=== PATIENT | female | born 1995 | race Caucasian/White ===

== ENCOUNTER → 2021-04-17 07:32 | Outpatient (CLI) | payer OTHER, SELFPAY ==
--- NOTE | ~2021-04-17 | US_ITS ---
EXAMINATION: US OB >= 14 weeks Fetus DATE: 04/17/2021 08:05 INDICATION: survey TECHNIQUE: Multiple obstetric sonographic images performed. FINDINGS: No prior studies for comparison. There is a single living fetus in vertex presentation. The placenta is anterior without placenta pre via measuring 2.5 cm to the cervix. Amniotic fluid volume is subjectively normal. cardiac activity and movement is noted with a heart rate of 142 beats per minute. The following anatomy was identified as normal: 4 chamber heart 3 vessel cord cord insertion kidneys urinary bladder stomach spine diaphragm ventricles cisterna magna cerebellum The following biometric data were obtained: BPD: 46mm corresponds to gestational age 20 weeks 0 days. Head circumference: 169 mm corresponds to gestational age 19 weeks 4 days. Abdominal circumference: 147 mm corresponds to gestational age 20 weeks 0 days. Femur length: 29 mm corresponds to gestational age 18 weeks 6 days. Head circumference to abdominal circumference ratio: 1.15 (normal range for expected gestational age is 1.08-1.26). Estimated weight: 298 grams +/- 45 grams using Hadlock method. IMPRESSION: 1: Single living intrauterine with an estimated gestational age of 19weeks 4days by current ultrasound measurements, with an EDC of 09/07/2021 in vertex presentation. 2. Normal survey. Reviewed, dictated and finalized at location A. IMPRESSION: 1: Single living intrauterine with an estimated gestational age of 19 weeks 4days by current ultrasound measurements, with an EDC of 09/07/2021 in ve rtex presentation. 2. Normal survey.
== END ==
PROVIDERS: Visit Provider Obstetrics & Gynecology Gynecologic Oncology
DX: Z36.9 Encounter for antenatal screening, unspecified (principal); Z3A.19 19 weeks gestation of pregnancy
CPT/HCPCS: 76805

== ENCOUNTER 2024-08-23 08:06 | Outpatient (CLI) | payer BC, SELFPAY ==
--- NOTE | ~2024-08-23 | US_ITS ---
EXAMINATION: US OB /maternal detail DATE: 08/23/2024 08:52 INDICATION: anatomic survey. TECHNIQUE: Real-time ultrasound of the pelvis was performed. COMPARISON: None. FINDINGS: There is a single living fetus in transverse lie. The placenta is anterior, 2.5 cm from the cervix. The cervical length is 4.7 cm on transabdominal images, which is normal. heart rate is 136 beat s per minute (bpm). The amniotic fluid is subjectively normal. The following biometric data were obtained: Biparietal diameter (BPD): 4.8 cm; head circumference (HC): 18.1 cm; abdominal circumference (AC): 16 .2 cm; femur length (FL): 3.2 cm. These measurements are concordant. Estimated weight is 371 g +/- 56 g, which correlates with the 89th percentile when 01/11/25 is u sed as estimated date of delivery. As single measurements, these parameters are each equal to the following estimated gestational ages: BPD: 20 weeks 4 days. HC: 20 weeks 4 days. AC: 21 weeks 2 days. FL: 20 weeks 1 days. estimated gestational age based solely on measurements from this exam is 20 weeks 5 days +/- 1 weeks 3 days. The cerebral ventricles, cerebellum, cisterna magna, nuchal fold, lip, and spine are normal. The hear t is normal. The diaphragm, stomach, kidneys, and bladder are normal. There are two umbilical arterie s to yield a 3-vessel cord. The cord insertion is normal. IMPRESSION: 1. Single living fetus in transverse lie. 2. Estimated weight is 371 g +/- 56 g, which correlates with the 89th percentile when 01/11/25 is used as estimated date of delivery. 3. Normal anatomic survey. Reviewed, dictated and finalized at location A. IMPRESSION: 1. Single living fetus in transverse lie. 2. Estimated weight is 371 g +/- 56 g, which correlates with the 89th pe rcentile when 01/11/25 is used as estimated date of delivery. 3. Normal anatomic survey.
== END 2024-08-23 08:07 | disposition home or self-care (01) ==
LOC: MICIMG 08:09
PROVIDERS: PCP Obstetrics & Gynecology; Visit Provider Obstetrics & Gynecology
DX: Z36.9 Encounter for antenatal screening, unspecified (principal); Z3A.20 20 weeks gestation of pregnancy
CPT/HCPCS: 76805